=== PATIENT | male | born 1995 | race Asian ===

== ENCOUNTER 2017-04-22 11:59 | Emergency (ER) | payer OTHER ==
[2017-04-22 12:17] VITALS: BP 119/74
[2017-04-22 14:02] LABS: Hematocrit 42 % (42-52); Hemoglobin 14.2 g/dl (14.0-18.0); Mean Corpuscular HGB Conc 34 g/dl (31-36); Mean Corpuscular Hemoglobin 30 pg (27-31); Mean Corpuscular Volume 89 fL (80-94); Mean Platelet Volume 9 um3 (7.4-10.4); Red Blood Count 4.73 10^6/ul (4.0-5.4); Red Cell Distribution Width 13 % (10.5-15); White Blood Count 4.6 10^3/ul (3.5-10.8)
[2017-04-22 14:16] LABS: Mono Internal Control QC Line Present
[2017-04-22 14:19] LABS: Albumin 4.5 g/dL (3.2-5.2); BUN/Creatinine Ratio 9.2 (8-20); C Reactive Protein 5.59 mg/L (< 5.00); Calcium 9.4 mg/dL (8.6-10.3); EGFR African American 110.9 (>60); EGFR Non-African American 86.2 (>60); Potassium 4.1 mmol/L (3.5-5.0); Total Bilirubin 0.4 mg/dL (0.2-1.0); Total Protein 7.5 g/dL (6.4-8.9)
--- NOTE | 2017-04-22 18:10 | ED ---
Yariel Mazariegos SooYoung, scribed for David Mcfarland MD on 04/22/17 at 1252 . HPI Febrile Illness - HPI Summary HPI Summary: A 21 y/o M presents to ED with c/o undulating fever with maxT of 104 F onset 4- 5 days ago. Associated sx: chills, aches, diaphoresis, frontal PETERSON, diarrhea. Denies cough, sore throat, congestion, rash, ear pain. Took Benadryl at 1000. Has been taking Ibuprofen for past few days to mild relief. Pt states not being around anyone ill, but he is a [employer] student. Is from [facility]. Denies recent travel. - History of Current Complaint Chief Complaint: EDFluSymptoms Time Seen by Provider: 04/22/17 12:36 Hx Obtained From: Patient Onset/Duration: Started Days Ago, Still Present Timing: Constant Initial Severity: Moderate Current Severity: Moderate Pain Intensity: 7 Pain Scale Used: 0-10 Numeric Associated Signs and Symptoms: Chills, Diaphoresis, Diarrhea, Headache, Other: - general aches PMH/Surg Hx/FS Hx/Imm Hx Previously Healthy: Yes Endocrine/Hematology History: Denies: Hx Diabetes Sensory History: Denies: Hx Legally Blind Opthamlomology History: Denies: Hx Legally Blind Infectious Disease History: Yes Infectious Disease History: Denies: Traveled Outside the [place] in Last 30 Days - Family History Known Family History: Negative: Cardiac Disease, Hypertension, Diabetes - Social History Occupation: Student Lives: Dormitory/Roommates Review of Systems Positive: Fever, Chills, Skin Diaphoresis, Other - body aches Negative: Sore Throat, Ear Ache, Other - neg: congestion Negative: Cough Positive: Diarrhea Negative: Rash Positive: Headache All Other Systems Reviewed And Are Negative: Yes Physical Exam Triage Information Reviewed: Yes Vital Signs On Initial Exam: Initial Vitals Temp Pulse Resp BP Pulse Ox 99.8 F 86 19 119/74 97 04/22/17 12:14 04/22/17 12:14 04/22/17 12:14 04/22/17 12:14 04/22/17 12:14 Vital Signs Reviewed: Yes Appearance: Positive: Well-Appearing, No Pain Distress Skin: Positive: Warm, Skin Color Reflects Adequate Perfusion, Dry Head/Face: Positive: Normal Head/Face Inspection Eyes: Positive: Normal ENT: Positive: Normal ENT inspection Neck: Positive: Supple, Nontender Respiratory/Lung Sounds: Positive: Clear to Auscultation, Breath Sounds Present Cardiovascular: Positive: RRR Abdomen Description: Positive: Nontender, Soft Bowel Sounds: Positive: Present Musculoskeletal: Positive: Normal Neurological: Positive: Normal Psychiatric: Positive: Normal, Affect/Mood Appropriate Diagnostics - Vital Signs Vital Signs Temp Pulse Resp BP Pulse Ox 04/22/17 12:14 99.8 F 86 19 119/74 97 - Laboratory Lab Results: Lab Results 04/22/17 04/22/17 04/22/17 Range/Units 13:15 13:15 13:34 WBC 4.6 (3.5-10.8) 10^3/ul RBC 4.73 (4.0-5.4) 10^6/ul Hgb 14.2 (14.0-18.0) g/dl Hct 42 (42-52) % MCV 89 (80-94) fL MCH 30 (27-31) pg MCHC 34 (31-36) g/dl RDW 13 (10.5-15) % Plt Count 217 (150-450) 10^3/ul MPV 9 (7.4-10.4) um3 Neut % (Auto) 62.6 (38-83) % Lymph % (Auto) 26.1 (25-47) % Mckenzie % (Auto) 9.7 H (1-9) % Eos % (Auto) 1.0 (0-6) % Baso % (Auto) 0.6 (0-2) % Absolute Neuts (auto) 2.9 (1.5-7.7) 10^3/ul Absolute Lymphs (auto) 1.2 (1.0-4.8) 10^3/ul Absolute Monos (auto) 0.5 (0-0.8) 10^3/ul Absolute Eos (auto) 0 (0-0.6) 10^3/ul Absolute Basos (auto) 0 (0-0.2) 10^3/ul Absolute Nucleated RBC 0 10^3/ul Nucleated RBC % 0 Sodium 138 (133-145) mmol/L Potassium 4.1 (3.5-5.0) mmol/L Chloride 104 (101-111) mmol/L Carbon Dioxide 29 (22-32) mmol/L Anion Gap 5 (2-11) mmol/L BUN 10 (6-24) mg/dL Creatinine 1.09 (0.67-1.17) mg/dL Est GFR ( Amer) 110.9 (>60) Est GFR (Non-Af Amer) 86.2 (>60) BUN/Creatinine Ratio 9.2 (8-20) Glucose 73 (70-100) mg/dL Calcium 9.4 (8.6-10.3) mg/dL Total Bilirubin 0.40 (0.2-1.0) mg/dL AST 13 (13-39) U/L ALT 12 (7-52) U/L Alkaline Phosphatase 53 (34-104) U/L C-Reactive Protein 5.59 H (< 5.00) mg/L Total Protein 7.5 (6.4-8.9) g/dL Albumin 4.5 (3.2-5.2) g/dL Globulin 3.0 (2-4) g/dL Albumin/Globulin Ratio 1.5 (1-3) Monoscreen Negative (Negative) Influenza A (Rapid) Negative (Negative) Influenza B (Rapid) Negative (Negative) Result Diagrams: 04/22/17 13:15 04/22/17 13:15 Lab Statement: Any lab studies that have been ordered have been reviewed, and results considered in the medical decision making process. Re-Evaluation - Re-Evaluation 1 Re-Evaluation Time: 14:28 Change: Unchanged Comment: Discussing results with pt. Pt voiced understanding. Will dispo home to f/u at [facility] Course/Dx - Course Course Of Treatment: Mr. Ibanez was nontoxic in appearance without meningeal signs. His W/U was negative although a tick-borne panel is still pending. - Diagnoses Provider Diagnoses: Viral syndrome Discharge - Discharge Plan Condition: Stable Disposition: HOME Patient Education Materials: Fever in Adults (ED) Forms: *School Release Referrals: [facility] - Mikhail ADAMS [Primary Care Provider] - 3 Days Additional Instructions: Use Tylenol and Ibuprofen as needed. Follow up at [facility] in 3 days. Please return to the ED if you experience new or worsening symptoms. The documentation as recorded by the Yariel cohn SooYoung accurately reflects the service I personally performed and the decisions made by , David Mcfarland MD.
[2017-04-24 23:48] LABS: B garinii/B afzelii PCR Negative (Negative); B mayonii PCR Negative (Negative)
[2017-04-25 01:08] LABS: B. miyamotoi PCR, B Negative (Negative); Babesia divergens/MO-1 Negative (Negative); Babesia ducani Negative (Negative); Ehrlichia ewingii/canis Negative (Negative)
== END 2017-04-22 14:43 | disposition home or self-care (01) ==
LOC: ED 11:59
DX: B34.9 Viral infection, unspecified (principal)
CPT/HCPCS: 36415; 80053; 85025; 86140; 86308; 87476; 87502; 87798; 99282